=== PATIENT | female | born 1960 ===

== ENCOUNTER → 2017-05-30 | Outpatient (CLI) | payer BC | LOC: MHCPAIN 08:28 | DX: G89.29 Other chronic pain (principal); M47.812 Spondylosis without myelopathy or radiculopathy, cervical region | CPT/HCPCS: G0463 ==

== ENCOUNTER 2017-06-30 13:15 | Outpatient (RCR) | payer BC | END 2017-09-02 | disposition home or self-care (01) | LOC: WSPT | DX: M50.30 Other cervical disc degeneration, unspecified cervical region (principal) ==

== ENCOUNTER → 2018-07-28 | Outpatient (CLI) | payer BC | LOC: MC.RAD 15:20 | DX: Z12.31 Encounter for screening mammogram for malignant neoplasm of breast (principal) ==